=== PATIENT | female | born 1985 | race Caucasian/White ===

== ENCOUNTER 2018-06-23 14:22 | Outpatient (CLI) | payer OTHER ==
--- NOTE | 2018-06-23 16:17 | RAD ---
LEFT SHOULDER ARTHROGRAM: HISTORY: Left shoulder injury. Internal derangement. FINDINGS: After explaining the procedure and answering all questions, the anterior aspect of the left shoulder was prepped and draped in the usual sterile fashion. Sterile technique, buffered local anesthesia, f luoroscopic guidance, and an anterior approach were used to carefully advance the tip of a 22-gauge s guero needle to the joint capsule at the level of the humeral head. Approximately 10 cc of a liquid mixture containing normal saline, 1% lidocaine, iodinated contrast, and small amounts of Gadolinium a nd epinephrine were then instilled into the joint capsule under fluoroscopic control. The needle was removed and spot images were obtained. The patient tolerated the procedure well and was transferred to MRI in good condition for further monitoring. Contrast remained within the joint capsule. IMPRESSION: Technically successful left shoulder arthrogram revealing no full-thickness rotator cuff tear. MRI i s pending. POS: [facility]
--- NOTE | 2018-06-23 17:09 | MRI ---
MR ARTHROGRAM OF THE LEFT SHOULDER: 06/23/18 INDICATION: Concern for rotator cuff tear. TECHNIQUE: Multiplanar, multisequence MR images were obtained of the left shoulder following intra-articular adm inistration of dilute gadolinium solution. Please see the separately dictated left shoulder arthrogra m for details concerning the injection technique. FINDINGS: The rotator cuff is intact. There is mild tendinosis of the supraspinatus and infraspinatus. The marisa ps tendon and biceps anchor complex appear normal. Inferior glenohumeral labral ligamentous complex i s intact. Glenohumeral articular surface is normal appearing. AC joint demonstrates mild degenerative change. No abnormal fluid is seen within the subacromial subdeltoid bursa. There is a type II acromi on. No os acromiale is present. No enlarged lymph nodes are present. IMPRESSION: 1. Mild tendinosis of the supraspinatus and infraspinatus. No full thickness rotator cuff tear demonstrated. 2. Biceps anchor complex and biceps tendon appears within normal limits. The inferior glenohumer al labral ligamentous complex appears intact. 3. Glenohumeral articular surface is normal appearing. 4. Mild AC joint osteoarthrosis. POS: [facility]
== END 2018-06-23 14:23 | disposition home or self-care (01) ==
LOC: RAD 14:22
PROVIDERS: ATTEND Emergency Medicine Sports Medicine
DX: S46.002A Unspecified injury of muscle(s) and tendon(s) of the rotator cuff of left shoulder, initial encounter (principal); S40.012A Contusion of left shoulder, initial encounter; M19.012 Primary osteoarthritis, left shoulder; M75.82 Other shoulder lesions, left shoulder
CPT/HCPCS: 23350